=== PATIENT | male | born 1955 | race Hispanic/Latino ===

== ENCOUNTER 2018-12-11 10:04 | Inpatient (IN) | payer OTHER ==
[2018-12-11] VITALS (16 sets, daily range): BP systolic 143–181; BP diastolic 61–103
[~2018-12-11] VITALS: Ht 154.9 cm; Wt 81.6 kg
[2018-12-11 11:16] LABS: BASOPHILS % (AUTO) 0.9 % (0.0-5.0); EOSINOPHILS % (AUTO) 6.9 % (0.0-8.0); HEMATOCRIT 32.7 % (42-54); LYMPHOCYTES % (AUTO) 17.9 % (21.0-51.0); MEAN CORPUSCULAR HEMOGLOBIN 29.6 pg (27.0-33.0); MEAN CORPUSCULAR HGB CONC 34.3 g/dL (32.0-36.0); MEAN CORPUSCULAR VOLUME 86.5 fL (79-99); MONOCYTES % (AUTO) 5.1 % (3.0-13.0); NEUTROPHILS % (AUTO) 69.2 % (40.0-77.0); PLATELET COUNT (AUTO) 270 K/uL (130-400); RED BLOOD CELL COUNT(AUTO) 3.78 MIL/uL (4.50-6.20); WHITE BLOOD COUNT (AUTO) 9.9 K/uL (4.8-10.8)
[2018-12-11 11:22] LABS: POTASSIUM 4.5 mmol/L (3.5-5.1)
[2018-12-11 11:34] LABS: ALBUMIN 2.3 g/dL (3.5-5.0); BILIRUBIN,TOTAL 0.2 mg/dL (0.2-1.0); INR 0.95 (0.85-1.15); PARTIAL THROMBOPLASTIN TIME 29.6 SEC (26.3-35.5); TOTAL PROTEIN, SERUM 6.3 g/dL (6.0-8.3)
[2018-12-11 11:39] LABS: B-TYPE NATRIURETIC PEPTIDE 1740 pg/mL (0-100)
[2018-12-11] MEDS ORDERED: FUROSEMIDE 10 MG/ML 2ML VIAL ONE (12:05)
[2018-12-11] MEDS ORDERED: FUROSEMIDE 10 MG/ML 4ML VIAL ONE (12:06)
[2018-12-11] MEDS ORDERED: NITROGLYCERIN 1GM/1 INCH PACKET TD ONE (12:06)
[2018-12-11] MEDS ORDERED: MORPHINE SULFATE 2 MG/ML 1ML SYG IV PRN (12:15)
[2018-12-11] MEDS ORDERED: ACETAMINOPHEN 325 MG TAB PO PRN (12:15)
[2018-12-11] MEDS ORDERED: ONDANSETRON HCL 4 MG/2 ML VIAL IV PRN (12:15)
[2018-12-11] MEDS: FUROSEMIDE 10 MG/ML 2ML VIAL IV SCH ×2 (12:15→23:17)
[2018-12-11] MEDS ORDERED: HYDRALAZINE HCL 20 MG/ML VIAL ONE (13:29)
[2018-12-11] MEDS ORDERED: NITROGLYCERIN 50 MG/D5% WATER 250 BOT IV PRN (14:45)
[2018-12-11] MEDS ORDERED: NITROGLYCERIN 50 MG/D5% WATER 1 BOT ONE ×2 (14:50→15:26)
[2018-12-11] MEDS ORDERED: LABETALOL HCL 5 MG/ML 20ML VIAL IV ONE (15:51)
[2018-12-11] MEDS: METOPROLOL TARTRATE 50 MG TAB PO SCH ×2 (16:15→23:17)
[2018-12-11] MEDS: ASPIRIN 81MG TAB.CHEW PO SCH (16:15)
[2018-12-11] MEDS: AMLODIPINE BESYLATE 5 MG TAB PO SCH (16:15)
[2018-12-11] MEDS ORDERED: AMLODIPINE BESYLATE 5 MG TAB PO ONE (16:27)
[2018-12-11] MEDS ORDERED: ASPIRIN 81MG TAB.CHEW ONE (16:27)
[2018-12-11] MEDS ORDERED: METOPROLOL TARTRATE 50 MG TAB ONE (16:28)
[2018-12-11] MEDS: INSULIN HUMULIN R 100 UNIT/ML 3ML SQ SCH ×2 (16:30→21:00)
[2018-12-11] MEDS: IPRATROPIUM/ALBUTEROL SULFATE 3 ML SOLUTION IH SCH ×2 (18:32→23:04)
[2018-12-11] MEDS: ATORVASTATIN CALCIUM 20 MG TABLET PO SCH (21:02)
[2018-12-11 21:09] LABS: CREATINE KINASE, TOTAL 150 U/L (21-232); MYOGLOBIN 292 ng/mL (10-92); TROPONIN I < 0.04 ng/mL (0.00-0.06)
[2018-12-11 21:48] LABS: APPEARANCE,URINE Clear (CLEAR); BILIRUBIN,URINE Negative (NEGATIVE); COLOR,URINE Yellow (YELLOW); GLUCOSE, URINE (UA) 250 mg/dL (NEGATIVE); KETONES,URINE Negative (NEGATIVE); LEUKOCYTE ESTERASE ,URINE Negative (NEGATIVE); NITRATE,URINE Negative (NEGATIVE); OCCULT BLOOD,URINE Small (NEGATIVE); PROTEIN,URINE >=1000 mg/dL (NEGATIVE); UROBILINOGEN,URINE 0.2 mg/dL (0.2-1.0)
[2018-12-11 22:13] LABS: BACTERIA,URINE Few /HPF (None Seen); WBC,URINE 0-1 /HPF (0-1)
[2018-12-11 22:14] LABS: SQUAMOUS EPITHELIAL CELL,UR Rare /HPF (0-2)
[2018-12-11 23:40] LABS: CREATINE KINASE, TOTAL 148 U/L (21-232); MYOGLOBIN 297 ng/mL (10-92); TROPONIN I < 0.04 ng/mL (0.00-0.06)
[2018-12-12] VITALS (30 sets, daily range): BP systolic 140–184; BP diastolic 65–95
[2018-12-12 03:53] LABS: BASOPHILS % (AUTO) 0.7 % (0.0-5.0); EOSINOPHILS % (AUTO) 10.2 % (0.0-8.0); HEMATOCRIT 27.9 % (42-54); LYMPHOCYTES % (AUTO) 21.6 % (21.0-51.0); MEAN CORPUSCULAR HEMOGLOBIN 29.2 pg (27.0-33.0); MEAN CORPUSCULAR HGB CONC 33.5 g/dL (32.0-36.0); MEAN CORPUSCULAR VOLUME 87.2 fL (79-99); MONOCYTES % (AUTO) 7.7 % (3.0-13.0); NEUTROPHILS % (AUTO) 59.8 % (40.0-77.0); PLATELET COUNT (AUTO) 247 K/uL (130-400); RED CELL DISTRIBUTION WIDTH 15.4 % (11.0-15.5); WHITE BLOOD COUNT (AUTO) 10.1 K/uL (4.8-10.8)
[2018-12-12 04:07] LABS: PHOSPHORUS 5.1 mg/dL (2.5-4.9); POTASSIUM 4.1 mmol/L (3.5-5.1)
[2018-12-12] MEDS: INSULIN HUMULIN R 100 UNIT/ML 3ML SQ SCH ×4 (06:09→20:28)
[2018-12-12] MEDS: IPRATROPIUM/ALBUTEROL SULFATE 3 ML SOLUTION IH SCH ×4 (06:29→23:30)
[2018-12-12] MEDS: AMLODIPINE BESYLATE 5 MG TAB PO SCH (07:57)
[2018-12-12] MEDS: METOPROLOL TARTRATE 50 MG TAB PO SCH ×2 (07:57→20:52)
[2018-12-12] MEDS: FAMOTIDINE 20MG TAB 20 MG TAB PO SCH (07:57)
[2018-12-12] MEDS: ASPIRIN 81MG TAB.CHEW PO SCH (07:57)
[2018-12-12] MEDS: FOLIC ACID/VITAMIN B COMP W-C 1 MG CAP/TAB PO SCH (07:57)
[2018-12-12] MEDS: ENOXAPARIN SODIUM 40 MG/0.4 ML SYRINGE SQ SCH (07:58)
[2018-12-12] MEDS ORDERED: METOPROLOL TARTRATE 25 MG TAB PO SCH (10:50)
[2018-12-12] MEDS: FUROSEMIDE 10 MG/ML 2ML VIAL IV SCH (11:21)
--- NOTE | 2018-12-12 12:20 | NUR ---
DR. WRIGHT IN ROOM SPEAKING WITH PT. AND PT.'S SPOUSE RE:PLAN OF CARE. QUESTIONS ANSWERED BY DR. WRIGHT; VERBALIZED MUTUAL UNDERSTANDING.
[2018-12-12] MEDS: BUMETANIDE 0.25 MG/ML 10 ML 40 ML IV SCH (14:13)
--- NOTE | 2018-12-12 18:40 | NUR ---
cm note met with patient and spouse, and states pt is independnet with ambualtion, and adls. no dme. states [place]. does not see pcp, provided info on [facility] in the area, and med assistance programs. pt vand spouse verbalize understanding and states will followup . also will follow with [place] for possible medicaid assistance. Addendum: 12/12/18 at 1842 by SRINIVAS GRANADOS CM Amended: Links added.
[2018-12-12] MEDS ORDERED: ACETAMINOPHEN 325 MG TAB PO PRN (20:30)
[2018-12-12] MEDS: ATORVASTATIN CALCIUM 20 MG TABLET PO SCH (20:52)
[2018-12-13] VITALS (23 sets, daily range): BP systolic 156–197; BP diastolic 59–123
[2018-12-13 03:49] LABS: MEAN CORPUSCULAR HEMOGLOBIN 29.2 pg (27.0-33.0); MEAN CORPUSCULAR HGB CONC 33.9 g/dL (32.0-36.0); MEAN CORPUSCULAR VOLUME 86.2 fL (79-99); PLATELET COUNT (AUTO) 268 K/uL (130-400); RED BLOOD CELL COUNT(AUTO) 3.25 MIL/uL (4.50-6.20); WHITE BLOOD COUNT (AUTO) 9.5 K/uL (4.8-10.8)
[2018-12-13 04:04] LABS: CREATININE 5.1 mg/dL (0.5-1.5); MAGNESIUM 1.8 mg/dL (1.80-2.40); PHOSPHORUS 5.1 mg/dL (2.5-4.9)
[2018-12-13 04:24] LABS: FERRITIN 234 ng/mL (30-400); IRON, SERUM 45 mcg/dL (65-175)
[2018-12-13 04:30] LABS: HEMOGLOBIN A1C 5.6 % (4.0-6.0)
[2018-12-13] MEDS: BUMETANIDE 0.25 MG/ML 10 ML 40 ML IV SCH (04:44)
[2018-12-13] MEDS: INSULIN HUMULIN R 100 UNIT/ML 3ML SQ SCH ×4 (05:34→20:23)
[2018-12-13] MEDS: IPRATROPIUM/ALBUTEROL SULFATE 3 ML SOLUTION IH SCH ×4 (06:00→23:28)
[2018-12-13] MEDS: ASPIRIN 81MG TAB.CHEW PO SCH (07:32)
[2018-12-13] MEDS: FOLIC ACID/VITAMIN B COMP W-C 1 MG CAP/TAB PO SCH (07:33)
[2018-12-13] MEDS: METOPROLOL TARTRATE 50 MG TAB PO SCH ×2 (07:33→20:26)
[2018-12-13] MEDS: FAMOTIDINE 20MG TAB 20 MG TAB PO SCH (07:33)
[2018-12-13] MEDS: AMLODIPINE BESYLATE 5 MG TAB PO SCH (07:33)
[2018-12-13] MEDS: ENOXAPARIN SODIUM 40 MG/0.4 ML SYRINGE SQ SCH (07:34)
[2018-12-13] MEDS ORDERED: CLONIDINE HCL 0.1 MG TABLET PO PRN (11:00)
[2018-12-13] MEDS ORDERED: METOPROLOL TARTRATE 50 MG TAB PO SCH (11:30)
[2018-12-13] MEDS ORDERED: AMLODIPINE BESYLATE 5 MG TAB PO SCH (11:30)
--- NOTE | 2018-12-13 12:21 | NUR ---
DR. Vasiliy RAVI IN ROOM SPEAKING WITH PT. RE:PLAN OF CARE; PT.'S SPOUSE AT BEDSIDE. QUESTIONS ANSWERED BY DR. RAVI.
--- NOTE | 2018-12-13 13:06 | NUR ---
BP-158/80. TRIDIL STOPPED. CALL LIGHT WITHIN REACH. SPOUSE AT BEDSIDE.
[2018-12-13] MEDS: ATORVASTATIN CALCIUM 20 MG TABLET PO SCH (20:25)
[2018-12-13] MEDS: CLONIDINE HCL 0.1 MG TABLET PO SCH (22:27)
[2018-12-14] VITALS (28 sets, daily range): BP systolic 128–193; BP diastolic 63–93
[2018-12-14] MEDS: MINOXIDIL 2.5 MG TAB PO SCH ×3 (02:00→21:23)
[2018-12-14 03:11] LABS: BASOPHILS % (AUTO) 0.6 % (0.0-5.0); EOSINOPHILS % (AUTO) 15.5 % (0.0-8.0); HEMATOCRIT 26.7 % (42-54); LYMPHOCYTES % (AUTO) 23.1 % (21.0-51.0); MEAN CORPUSCULAR HEMOGLOBIN 29.5 pg (27.0-33.0); MEAN CORPUSCULAR HGB CONC 33.8 g/dL (32.0-36.0); MEAN CORPUSCULAR VOLUME 87.2 fL (79-99); MONOCYTES % (AUTO) 7.6 % (3.0-13.0); NEUTROPHILS % (AUTO) 53.2 % (40.0-77.0); PLATELET COUNT (AUTO) 227 K/uL (130-400); RED BLOOD CELL COUNT(AUTO) 3.07 MIL/uL (4.50-6.20); RED CELL DISTRIBUTION WIDTH 15.6 % (11.0-15.5); WHITE BLOOD COUNT (AUTO) 9.2 K/uL (4.8-10.8)
[2018-12-14 03:26] LABS: CREATININE 5.3 mg/dL (0.5-1.5); MAGNESIUM 1.6 mg/dL (1.80-2.40); POTASSIUM 3.8 mmol/L (3.5-5.1)
[2018-12-14] MEDS: INSULIN HUMULIN R 100 UNIT/ML 3ML SQ SCH ×4 (05:52→21:00)
[2018-12-14] MEDS: CLONIDINE HCL 0.1 MG TABLET PO SCH ×3 (05:58→21:27)
[2018-12-14] MEDS: IPRATROPIUM/ALBUTEROL SULFATE 3 ML SOLUTION IH SCH ×2 (06:18→11:26)
[2018-12-14] MEDS: FAMOTIDINE 20MG TAB 20 MG TAB PO SCH (07:45)
[2018-12-14] MEDS: ASPIRIN 81MG TAB.CHEW PO SCH (07:45)
[2018-12-14] MEDS: AMLODIPINE BESYLATE 5 MG TAB PO SCH (07:45)
[2018-12-14] MEDS: ENOXAPARIN SODIUM 30 MG/0.3 ML SQ SCH (07:46)
[2018-12-14] MEDS ORDERED: MAGNESIUM OXIDE 400 MG TABLET PO SCH (08:00)
[2018-12-14] MEDS: FOLIC ACID/VITAMIN B COMP W-C 1 MG CAP/TAB PO SCH (08:27)
[2018-12-14] MEDS: METOPROLOL TARTRATE 50 MG TAB PO SCH ×2 (08:27→21:23)
[2018-12-14] MEDS ORDERED: FUROSEMIDE 40 MG TABLET PO SCH (11:00)
--- NOTE | 2018-12-14 16:15 | NUR ---
REPORT GIVEN TOP JANI CHAPPELL RN. TRANSFERRED TO PCCU, ROOM 201, NO SIGNS OF DISTRESS OR DISCOMFORT NOTED, LATEST B/P 148/72, SB 59
--- NOTE | 2018-12-14 16:20 | NUR ---
TRANSFER FROM ICU RECEIVED PT FROM WILLIAM BROWN, UP IN CARDIAC CHAIR, A&OX3, CALM COOPERATIVE AND DOES NOT APPEAR TO BE IN ANY DISTRESS NOR ANY NEURO DEFICITS PRESENT. PT DENIES PAIN, SOB, NAUSEA. PT RESTING COMFORTABLY, CALL LIGHT WITHIN REACH, FAMILY AT BEDSIDE.
--- NOTE | 2018-12-14 19:58 | NUR ---
ASSESSED PT AND SEE PHYSICAL ASSESSMENT FOR DOCUMENTATION.
[2018-12-14] MEDS: ATORVASTATIN CALCIUM 20 MG TABLET PO SCH (21:23)
[2018-12-15] VITALS (7 sets, daily range): BP systolic 130–159; BP diastolic 59–75
[2018-12-15 04:44] LABS: BASOPHILS % (AUTO) 0.8 % (0.0-5.0); EOSINOPHILS % (AUTO) 17.1 % (0.0-8.0); LYMPHOCYTES % (AUTO) 23.6 % (21.0-51.0); MEAN CORPUSCULAR HEMOGLOBIN 29.6 pg (27.0-33.0); MEAN CORPUSCULAR HGB CONC 34.5 g/dL (32.0-36.0); MEAN CORPUSCULAR VOLUME 85.9 fL (79-99); MONOCYTES % (AUTO) 7.7 % (3.0-13.0); NEUTROPHILS % (AUTO) 50.8 % (40.0-77.0); PLATELET COUNT (AUTO) 205 K/uL (130-400); RED BLOOD CELL COUNT(AUTO) 3.03 MIL/uL (4.50-6.20); RED CELL DISTRIBUTION WIDTH 15.3 % (11.0-15.5); WHITE BLOOD COUNT (AUTO) 8.3 K/uL (4.8-10.8)
[2018-12-15 04:52] LABS: CREATININE 5.3 mg/dL (0.5-1.5); POTASSIUM 3.9 mmol/L (3.5-5.1)
[2018-12-15] MEDS: CLONIDINE HCL 0.1 MG TABLET PO SCH ×3 (06:58→21:36)
[2018-12-15] MEDS: INSULIN HUMULIN R 100 UNIT/ML 3ML SQ SCH ×4 (06:59→21:44)
[2018-12-15] MEDS: IPRATROPIUM/ALBUTEROL SULFATE 3 ML SOLUTION IH SCH ×4 (07:01→23:01)
[2018-12-15] MEDS: METOPROLOL TARTRATE 50 MG TAB PO SCH ×2 (07:14→20:09)
[2018-12-15] MEDS: FAMOTIDINE 20MG TAB 20 MG TAB PO SCH (07:14)
[2018-12-15] MEDS: MINOXIDIL 2.5 MG TAB PO SCH ×2 (07:14→20:09)
[2018-12-15] MEDS: FOLIC ACID/VITAMIN B COMP W-C 1 MG CAP/TAB PO SCH (07:14)
[2018-12-15] MEDS: AMLODIPINE BESYLATE 5 MG TAB PO SCH (07:14)
[2018-12-15] MEDS: ASPIRIN 81MG TAB.CHEW PO SCH (07:14)
[2018-12-15] MEDS: ENOXAPARIN SODIUM 30 MG/0.3 ML SQ SCH (07:15)
--- NOTE | 2018-12-15 07:20 | NUR ---
ASSESSMENT PT IS AAOX4 DENIES CP DENIES SOB DENIES NV NO COMPLAINTS AT THIS TIME, RESTING IN BED. BREATHING PATTERN IS EVEN AND UNLABORED. VISITOR IS AT BEDSIDE, CALL LIGHT WITHIN REACH.
[2018-12-15] MEDS ORDERED: FUROSEMIDE 40 MG TABLET PO SCH (09:00)
[2018-12-15] MEDS ORDERED: FUROSEMIDE 10 MG/ML 4ML VIAL IV SCH (12:00)
--- NOTE | 2018-12-15 12:30 | NUR ---
MD ROUNDS DR Marissa RAVI AND DR WRIGHT ROUNDED. SAW PATIENT, ORDERS RECEIVED.
--- NOTE | 2018-12-15 17:50 | NUR ---
STATUS RESTING IN BED NO COMPLAINTS. CALL LIGHT WITHIN REACH.
[2018-12-15] MEDS: ATORVASTATIN CALCIUM 20 MG TABLET PO SCH (20:09)
[2018-12-16 04:24] VITALS: BP 138/58
[2018-12-16] MEDS: INSULIN HUMULIN R 100 UNIT/ML 3ML SQ SCH (05:58)
[2018-12-16] MEDS: CLONIDINE HCL 0.1 MG TABLET PO SCH (05:59)
[2018-12-16] MEDS: IPRATROPIUM/ALBUTEROL SULFATE 3 ML SOLUTION IH SCH (06:18)
--- NOTE | 2018-12-16 07:00 | NUR ---
ASSESSMENT PT IS AAOX4 RESTING IN BED. DENIES CP DENIES SOB DENIES NV NO COMPLAINTS. BREATHING PATTERN IS EVEN AND UNLABORED. CALL LIGHT WITHIN REACH.
[2018-12-16] MEDS: FAMOTIDINE 20MG TAB 20 MG TAB PO SCH (07:11)
[2018-12-16] MEDS: FOLIC ACID/VITAMIN B COMP W-C 1 MG CAP/TAB PO SCH (07:11)
[2018-12-16] MEDS: MINOXIDIL 2.5 MG TAB PO SCH (07:11)
[2018-12-16] MEDS: ASPIRIN 81MG TAB.CHEW PO SCH (07:11)
[2018-12-16] MEDS: METOPROLOL TARTRATE 50 MG TAB PO SCH (07:11)
[2018-12-16] MEDS: AMLODIPINE BESYLATE 5 MG TAB PO SCH (07:11)
[2018-12-16] MEDS: ENOXAPARIN SODIUM 30 MG/0.3 ML SQ SCH (07:12)
[2018-12-16 07:53] VITALS: BP 120/59
[2018-12-16] MEDS ORDERED: AMLO5TAB4 PO (08:32)
[2018-12-16] MEDS ORDERED: ATOR20TA65 PO (08:32)
[2018-12-16] MEDS ORDERED: FURO80TA3 PO (08:32)
[2018-12-16] MEDS ORDERED: METO50 PO (08:32)
[2018-12-16] MEDS ORDERED: Folic Acid/Vitamin B Comp W-C PO (08:32)
[2018-12-16] MEDS ORDERED: ASPI-1005 PO (08:32)
[2018-12-16] MEDS ORDERED: FUROSEMIDE 80 MG TABLET PO SCH (09:00)
--- NOTE | 2018-12-16 10:45 | NUR ---
ROUNDS CLEARED FOR DC BY DR KYLE LAMA AND DR Marissa RAVI
--- NOTE | 2018-12-16 11:10 | NUR ---
DISCHARGE PATIENT AND FAMILY VERBALIZE DC INSTRUCTIONS UNDERSTANDING. AGREE TO TAKE ALL MEDS ORDERED WITHOUT FAIL, AGREE TO FOLLOW UP WITH MDS ORDERED. ALL QUESTIONS ANSWERED, PIV REMOVED CATH TIP INTACT. TELE PACK REMOVED. AWAITING RIDE.
--- NOTE | 2018-12-16 12:30 | NUR ---
DOWN VIA WC TO RIDE WITH FAMILY AND NURSE AIDE
--- NOTE | 2018-12-16 13:20 | NUR ---
DC PLAN PATIENT GIVEN LOW INCOME CLINIC INFO. MEDICATIONS ADDRESSED WITH PRIMARY ALL GIVEN FOR HOME ARE EITHER OVER THE COUNTER OR ON THE 4DOLLAR PLAN AT [facility]. INFO GIVEN TO PATIENT. Addendum: 12/16/18 at 1321 by DENNISE TOMLIN RN CM Amended: Links added.
== END 2018-12-16 12:30 | disposition home or self-care (01) | DRG 291 ==
LOC: EDH 10:04 → OBSVTOIN 10:05 → EDHIP 10:05 → 2CH 18:23 → 2AH 12-14 16:26
PROVIDERS: ADMIT Hospitalist; ATTEND Hospitalist
DX: I13.2 Hypertensive heart and chronic kidney disease with heart failure and with stage 5 chronic kidney disease, or end stage renal disease (principal); J96.01 Acute respiratory failure with hypoxia; I50.33 Acute on chronic diastolic (congestive) heart failure; I16.1 Hypertensive emergency; E44.0 Moderate protein-calorie malnutrition; N17.9 Acute kidney failure, unspecified; N18.5 Chronic kidney disease, stage 5; I20.0 Unstable angina; D63.8 Anemia in other chronic diseases classified elsewhere; E11.21 Type 2 diabetes mellitus with diabetic nephropathy; E11.22 Type 2 diabetes mellitus with diabetic chronic kidney disease; E66.9 Obesity, unspecified; E78.5 Hyperlipidemia, unspecified; I45.10 Unspecified right bundle-branch block; Z16.24 Resistance to multiple antibiotics; Z68.34 Body mass index [BMI] 34.0-34.9, adult; Z79.82 Long term (current) use of aspirin; Z79.899 Other long term (current) drug therapy; Z87.891 Personal history of nicotine dependence; Z91.14 Patient's other noncompliance with medication regimen; Z91.19 Patient's noncompliance with other medical treatment and regimen
CPT/HCPCS: 36415; 71045; 76705; 76770; 80048; 80053; 80061; 81001; 82550; 82728; 82948; 83036; 83540; 83735; 83874; 83880; 84100; 84484; 84550; 85025; 85027; 85610; 85730; 93005; 93306; 93975; 94640; 94664; G0378; J0360; J1650; J1815; J1940; J3490

== ENCOUNTER 2019-04-04 17:45 | Inpatient (IN) | payer MEDICAID, OTHER ==
[~2019-04-04] VITALS: Ht 167.6 cm; Wt 77.2 kg
[~2019-04-04 17:45] MED LIST: AMLO5TAB4 PO; ASPI-1005 PO; ATOR20TA65 PO; FURO80TA3 PO; Folic Acid/Vitamin B Comp W-C PO; METO50 PO
[2019-04-04] MEDS ORDERED: LABETALOL 20 MG/4 ML DISP.SYRIN IV ONE (19:17)
[2019-04-04 19:35] LABS: APPEARANCE,URINE Clear (CLEAR); BILIRUBIN,URINE Negative (NEGATIVE); COLOR,URINE Yellow (YELLOW); GLUCOSE, URINE (UA) TRACE mg/dL (NEGATIVE); KETONES,URINE Negative (NEGATIVE); LEUKOCYTE ESTERASE ,URINE Small (NEGATIVE); NITRATE,URINE Negative (NEGATIVE); OCCULT BLOOD,URINE Moderate (NEGATIVE); PH,URINE 6.5 (5.0-8.0); PROTEIN,URINE >=1000 mg/dL (NEGATIVE)
[2019-04-04 19:41] LABS: BASOPHILS % (AUTO) 0.5 % (0.0-5.0); HEMATOCRIT 27.4 % (42-54); LYMPHOCYTES % (AUTO) 8.2 % (21.0-51.0); MEAN CORPUSCULAR HEMOGLOBIN 28.3 pg (27.0-33.0); MEAN CORPUSCULAR HGB CONC 32.5 g/dL (32.0-36.0); MEAN CORPUSCULAR VOLUME 86.9 fL (79-99); MONOCYTES % (AUTO) 6.8 % (3.0-13.0); NEUTROPHILS % (AUTO) 83.5 % (40.0-77.0); PLATELET COUNT (AUTO) 356 K/uL (130-400); RED BLOOD CELL COUNT(AUTO) 3.15 MIL/uL (4.50-6.20); RED CELL DISTRIBUTION WIDTH 14.2 % (11.0-15.5); WHITE BLOOD COUNT (AUTO) 12.2 K/uL (4.8-10.8)
[2019-04-04 19:43] LABS: ALBUMIN 1.6 g/dL (3.5-5.0); BILIRUBIN,DIRECT 0.1 mg/dL (0.0-0.3); BILIRUBIN,TOTAL 0.3 mg/dL (0.2-1.0); CREATININE 6.6 mg/dL (0.5-1.5); POTASSIUM 4.5 mmol/L (3.5-5.1); TOTAL PROTEIN, SERUM 5.7 g/dL (6.0-8.3)
[2019-04-04 19:50] LABS: BACTERIA,URINE Many /HPF (None Seen)
[2019-04-04] MEDS ORDERED: CEFTRIAXONE SODIUM 1 GM ONE (20:59)
[2019-04-04] MEDS ORDERED: LABETALOL HCL 5 MG/ML 20ML VIAL IV ONE (23:50)
[2019-04-05] MEDS ORDERED: SODIUM CHLORIDE 0.9% 1000ML 1,000 ML IV SCH (00:19)
[2019-04-05] MEDS ORDERED: MORPHINE SULFATE 2 MG/ML 1ML SYG IV PRN (00:30)
[2019-04-05] MEDS ORDERED: HYDRALAZINE HCL 20 MG/ML VIAL IV PRN (00:30)
[2019-04-05] MEDS ORDERED: PHARMACY COMMUNICATION MISC SCH (02:00)
[2019-04-05] MEDS ORDERED: CEFTRIAXONE SODIUM 1 GM IVP SCH (02:45)
[2019-04-05] MEDS ORDERED: ZOSYN 3.375GM+NS 50ML 50 ML IV ONE (02:55)
[2019-04-05] MEDS: ZOSYN 3.375GM+NS 50ML 50 ML IV SCH ×2 (05:00→13:23)
[2019-04-05 05:45] VITALS: BP 189/83
--- NOTE | 2019-04-05 06:00 | NUR ---
NURSING NOTE Pt arrived to floor. Pt denies any needs at this time. Torres patent and draining. Redness to groin area barrier cream applied. lower extremities dry flaking skin.
[2019-04-05] MEDS ORDERED: IRON18TA PO (06:14)
[2019-04-05] MEDS ORDERED: FOLI1TAB85 PO (06:14)
[2019-04-05 07:30] VITALS: BP 185/86
[2019-04-05] MEDS ORDERED: ENOXAPARIN SODIUM 30 MG/0.3 ML SQ SCH (09:00)
[2019-04-05] MEDS ORDERED: AMLODIPINE BESYLATE 5 MG TAB ONE (09:31)
[2019-04-05] MEDS: FAMOTIDINE/PF 20 MG/2 ML VIAL IV SCH ×2 (09:35→21:39)
[2019-04-05 11:00] VITALS: BP 177/79
[2019-04-05 16:00] VITALS: BP 164/76
--- NOTE | 2019-04-05 17:54 | NUR ---
dm note met with patient and spouse, pt independent with bath, but uses walker at times for ambulation. and does have a wc at home for longer distance. pt goes to [facility] familiar for md and meds. , but hasnt gone due to difficulty getting at ride. provided with [facility] information for transport and provider assist referal. states she will followup. dc plan is back [place]. also informed that per md pt may need dialysis,per , she is not sure he will qualify for insurance. but states he is not a resident, but she is a [place] citizen,, and has lived with him for 16 years. referral made to [facility]. spoke to herminia at [facility] and informed pt has a disabiling illness of ESRD. who states he will followup with his polymerization supervisor for possible assistance. Addendum: 04/05/19 at 1804 by SRINIVAS GRANADOS CM Amended: Links added.
[2019-04-05] MEDS: ATORVASTATIN CALCIUM 20 MG TABLET PO SCH (21:39)
[2019-04-05] MEDS: METOPROLOL TARTRATE 50 MG TAB PO SCH (21:39)
[2019-04-05 21:46] VITALS: BP 151/73
[2019-04-06] VITALS (7 sets, daily range): BP systolic 127–189; BP diastolic 62–83
[2019-04-06] MEDS: ZOSYN 3.375GM+NS 50ML 50 ML IV SCH ×2 (01:40→13:13)
[2019-04-06 05:03] LABS: ALBUMIN 1.7 g/dL (3.5-5.0); BILIRUBIN,TOTAL 0.4 mg/dL (0.2-1.0); CREATININE 6.6 mg/dL (0.5-1.5); MAGNESIUM 1.8 mg/dL (1.80-2.40); PHOSPHORUS 5.5 mg/dL (2.5-4.9); TOTAL PROTEIN, SERUM 5.8 g/dL (6.0-8.3)
[2019-04-06 05:47] LABS: MEAN CORPUSCULAR HEMOGLOBIN 28.8 pg (27.0-33.0); MEAN CORPUSCULAR HGB CONC 32.7 g/dL (32.0-36.0); MEAN CORPUSCULAR VOLUME 88.2 fL (79-99); NUCLEATED RED BLOOD CELLS 0.1 % (0.0-0.19); PLATELET COUNT (AUTO) 311 K/uL (130-400); RED BLOOD CELL COUNT(AUTO) 2.95 MIL/uL (4.50-6.20); RED CELL DISTRIBUTION WIDTH 14.1 % (11.0-15.5); WHITE BLOOD COUNT (AUTO) 9.8 K/uL (4.8-10.8)
[2019-04-06 05:51] LABS: BAND NEUTROPHILS % (MANUAL) 1 % (0-2); EOSINOPHILS % (MANUAL) 3 % (1-6); LYMPHOCYTES % (MANUAL) 15 % (22-44); MAN.DIFF COMMENT-IMPRESSION MANUAL DIFFERENTIAL; MONOCYTES % (MANUAL) 4 % (2-9); PLATELET MORPHOLOGY COMMENT ADEQUATE; SEGMENTED NEUTROPHILS % 77 % (40-70)
[2019-04-06] MEDS ORDERED: FOLIC ACID/VITAMIN B COMP W-C 1 MG CAP/TAB PO SCH (08:30)
[2019-04-06] MEDS: FUROSEMIDE 80 MG TABLET PO SCH (08:33)
[2019-04-06] MEDS: AMLODIPINE BESYLATE 5 MG TAB PO SCH (08:33)
[2019-04-06] MEDS: METOPROLOL TARTRATE 50 MG TAB PO SCH ×2 (08:33→20:19)
[2019-04-06] MEDS: FAMOTIDINE/PF 20 MG/2 ML VIAL IV SCH ×2 (08:33→20:19)
[2019-04-06] MEDS ORDERED: AMLODIPINE BESYLATE 5 MG TAB PO SCH (09:00)
[2019-04-06] MEDS: ATORVASTATIN CALCIUM 20 MG TABLET PO SCH (20:19)
[2019-04-06] MEDS: HYDRALAZINE HCL 10 MG TABLET PO SCH (20:20)
--- NOTE | 2019-04-06 20:20 | NUR ---
MEDS SHIFT ASSESSMENT DONE, PLEASE REFER TO CHART. RE-POSITIONED COMFORTABLY IN BED WITH HOB ELEVATED. DUE MEDS ADMINISTERED, TOLERATE DWELL. CALL LIGHT WITHIN REACH. FAMILY AT BEDSIDE. WILL MONITOR PT. Addendum: 04/07/19 at 0109 by KASANDRA ERVIN RN RN Amended: Links added.
[2019-04-07] MEDS: ZOSYN 3.375GM+NS 50ML 50 ML IV SCH ×2 (00:19→12:13)
--- NOTE | 2019-04-07 02:00 | NUR ---
ROUNDS PT RESTING WELL, FAIRLY ASLEEP WITH RESPIRATIONS EVEN AND UNLABORED. NO DISTRESS NOTED. KEPT COMFORTABLE. CALL LIGHT WITHIN REACH. WILL MONITOR PT.
[2019-04-07 03:58] VITALS: BP 155/75
[2019-04-07 05:05] LABS: MEAN CORPUSCULAR HEMOGLOBIN 29.4 pg (27.0-33.0); MEAN CORPUSCULAR HGB CONC 33.4 g/dL (32.0-36.0); MEAN CORPUSCULAR VOLUME 87.9 fL (79-99); PLATELET COUNT (AUTO) 330 K/uL (130-400); RED BLOOD CELL COUNT(AUTO) 2.96 MIL/uL (4.50-6.20); RED CELL DISTRIBUTION WIDTH 13.4 % (11.0-15.5); WHITE BLOOD COUNT (AUTO) 9.5 K/uL (4.8-10.8)
--- NOTE | 2019-04-07 05:35 | NUR ---
ROUNDS PT RESTING WELL, NO DISTRESS NOTED. NO CONCERNS VERBALIZED. KEPT RESTED AND COMFORTABLE. SALINE LOCKED PT. FOR MORE CARE AND MANAGEMENT.
[2019-04-07 05:37] LABS: HEMOGLOBIN A1C 4.6 % (4.0-6.0)
[2019-04-07 05:44] LABS: CREATININE 6.8 mg/dL (0.5-1.5); POTASSIUM 4.4 mmol/L (3.5-5.1)
[2019-04-07 05:51] LABS: EOSINOPHILS % (MANUAL) 11 % (1-6); LYMPHOCYTES % (MANUAL) 12 % (22-44); MAN.DIFF COMMENT-IMPRESSION MANUAL DIFFERENTIAL; MONOCYTES % (MANUAL) 9 % (2-9); PLATELET MORPHOLOGY COMMENT ADEQUATE; SEGMENTED NEUTROPHILS % 68 % (40-70)
[2019-04-07 07:00] VITALS: BP 138/72
[2019-04-07] MEDS: FUROSEMIDE 80 MG TABLET PO SCH (07:56)
[2019-04-07] MEDS: AMLODIPINE BESYLATE 5 MG TAB PO SCH (07:56)
[2019-04-07] MEDS: FAMOTIDINE/PF 20 MG/2 ML VIAL IV SCH ×2 (07:56→21:41)
[2019-04-07] MEDS: METOPROLOL TARTRATE 50 MG TAB PO SCH ×2 (07:56→21:41)
[2019-04-07] MEDS: HYDRALAZINE HCL 10 MG TABLET PO SCH ×3 (08:38→21:41)
[2019-04-07 11:00] VITALS: BP 154/64
--- NOTE | 2019-04-07 12:43 | NUR ---
RD Notification Pt admitted for UTI, ESRD, HTN, PCM. Pt Hx DM, CHF, ESRD on HD. Pt asleep at time of visit. reports Pt with small appetite (PO: 50-75%), Nausea and vomiting with medications. Recommend to add Nepro QD. Also recommend Jose Armando BID secondary to Faulkner pressure ulcer. Recommend to add 500mg Vitamin C, 220mg ZnSO4 QD for wound healing support. Pt LBM 04/05/19. Pt monitored labs: Hgb 8.7, BUN 74, Cr 6.8, GFR 9, Ca 7.9, Alb 1.7. RD to continue to monitor. Please notify RD as additional nutrition concerns arise. Thank you. Addendum: 04/07/19 at [address] Amended: Links added.
--- NOTE | 2019-04-07 13:10 | NUR ---
NO HD BENEFITS POSSIBLE- SPOKE TO HAC, PT NON DOCUMENTED.
[2019-04-07 16:00] VITALS: BP 148/76
[2019-04-07] MEDS ORDERED: LIDOCAINE 5% TOPICAL PATCH TP SCH (19:15)
[2019-04-07 20:00] VITALS: BP 144/70
[2019-04-07] MEDS: ATORVASTATIN CALCIUM 20 MG TABLET PO SCH (21:41)
--- NOTE | 2019-04-07 21:41 | NUR ---
MEDS SHIFT ASSESSMENT DONE, PLEASE REFER TO CHART. RE-POSITIONED COMFORTABLY IN BED WITH HOB ELEVATED. DUE MEDS ADMINISTERED, TOLERATED WELL. KEPT RESTED AND COMFORTABLE. CALL LIGHT WITHIN REACH. FAMILY AT BEDSIDE. WILL MONITOR PT. Addendum: 04/07/19 at 2225 by KASANDRA ERVIN RN RN Amended: Links added.
[2019-04-08] VITALS: BP 140/72
[2019-04-08] MEDS: ZOSYN 3.375GM+NS 50ML 50 ML IV SCH ×2 (00:51→12:20)
--- NOTE | 2019-04-08 01:56 | NUR ---
ROUNDS PT RESTING WELL, FAIRLY ASLEEP WITH RESPIRATIONS EVEN AND UNLABORED. NO NOTED DISTRESS. KEPT UNDISTURBED FOR NOW WILL MONITOR PT.CALL LIGHT WITHIN REACH.
[2019-04-08 04:00] VITALS: BP 149/68
--- NOTE | 2019-04-08 05:46 | NUR ---
ROUNDS PT RESTING WELL, DENIES ANY CONCERNS AT THIS TIME. KEPT RESTED AND COMFORTABLE. FOR MORE CARE.
[2019-04-08 08:00] VITALS: BP 164/69
[2019-04-08] MEDS: FUROSEMIDE 80 MG TABLET PO SCH (08:30)
[2019-04-08] MEDS: AMLODIPINE BESYLATE 5 MG TAB PO SCH (08:30)
[2019-04-08] MEDS: HYDRALAZINE HCL 10 MG TABLET PO SCH ×2 (08:30→15:41)
[2019-04-08] MEDS: FAMOTIDINE/PF 20 MG/2 ML VIAL IV SCH (08:31)
[2019-04-08] MEDS: METOPROLOL TARTRATE 50 MG TAB PO SCH (08:31)
[2019-04-08 11:56] VITALS: BP 141/69
[2019-04-08] MEDS ORDERED: LIDO1ADH71 TP (13:43)
--- NOTE | 2019-04-08 14:24 | NUR ---
ADVISED BY MD THAT PT DOES NOT WANT TO GO HOME. PT STATES DOES NOT WANT TO GO HOME THIS MORNING WAS ASKED BY PMD TO SPEAK TO PT HE DOES NOT WANT TO GO HOME SPOKE TO PT/SPOUSE, PRIMARY RN WAS WITNESS, ADVISED HIM HE HAS NO BENEFITS FOR DIALYSIS AND NO BENENFITS FOR OUT PATIENT CARE AND THAT IT WAS TIME FOR HIM TO GO HOME. SPOUSE IN AGREEMENT. SOME DISCUSSION OF HOW TRANSPORT COULD TAKE PLACE, SPOUSE STATES MAYBE THEY COULD CALL A FRIEND, PT WANTS TO GO BY AMBULANCE. WILL FOLLOW UP
[2019-04-08 16:00] VITALS: BP 146/70
== END 2019-04-08 17:45 | disposition home or self-care (01) | DRG 871 ==
LOC: EDH 17:45 → EDBD 17:45 → EDHIP 17:46 → 3BH 04-05 03:01
PROVIDERS: ADMIT Family Medicine; ATTEND Family Medicine
DX: A41.9 Sepsis, unspecified organism (principal); N18.6 End stage renal disease; N39.0 Urinary tract infection, site not specified; I13.2 Hypertensive heart and chronic kidney disease with heart failure and with stage 5 chronic kidney disease, or end stage renal disease; I50.30 Unspecified diastolic (congestive) heart failure; N17.9 Acute kidney failure, unspecified; I16.9 Hypertensive crisis, unspecified; E46 Unspecified protein-calorie malnutrition; E11.21 Type 2 diabetes mellitus with diabetic nephropathy; E11.22 Type 2 diabetes mellitus with diabetic chronic kidney disease; D64.9 Anemia, unspecified; Z96.642 Presence of left artificial hip joint; Z99.2 Dependence on renal dialysis; Z91.19 Patient's noncompliance with other medical treatment and regimen; Z83.3 Family history of diabetes mellitus; Z82.49 Family history of ischemic heart disease and other diseases of the circulatory system; Z91.15 Patient's noncompliance with renal dialysis; Z79.4 Long term (current) use of insulin
CPT/HCPCS: 36415; 71045; 71250; 74176; 76705; 80048; 80053; 80076; 81001; 82728; 82948; 83036; 83540; 83550; 83735; 83880; 84100; 85025; 87040; 87088; 93005; 97039; G0378; J0360; J0696; J1650; J2543; J3490

== ENCOUNTER 2019-05-01 22:27 | Inpatient (IN) | payer OTHER ==
[~2019-05-01] VITALS: Ht 172.7 cm; Wt 75.3 kg
[~2019-05-01 22:27] MED LIST changes: -ASPI-1005 PO; +FOLI1TAB85 PO; +IRON18TA PO; +LIDO1ADH71 TP
[2019-05-01 23:38] LABS: BASOPHILS % (AUTO) 0.1 % (0.0-5.0); EOSINOPHILS % (AUTO) 9.8 % (0.0-8.0); HEMATOCRIT 23.5 % (42-54); LYMPHOCYTES % (AUTO) 16.2 % (21.0-51.0); MEAN CORPUSCULAR HEMOGLOBIN 28.2 pg (27.0-33.0); MEAN CORPUSCULAR HGB CONC 31.1 g/dL (32.0-36.0); MEAN CORPUSCULAR VOLUME 90.7 fL (79-99); MONOCYTES % (AUTO) 7.7 % (3.0-13.0); NEUTROPHILS % (AUTO) 65.9 % (40.0-77.0); PLATELET COUNT (AUTO) 284 K/uL (130-400); RED BLOOD CELL COUNT(AUTO) 2.59 MIL/uL (4.50-6.20); RED CELL DISTRIBUTION WIDTH 16.1 % (11.0-15.5)
[2019-05-01 23:58] LABS: ALANINE AMINOTRANSFERASE 41 U/L (12-78); ALBUMIN 2.2 g/dL (3.5-5.0); ASPARTATE AMINOTRANSFERASE 25 U/L (10-37); BILIRUBIN,TOTAL 0.2 mg/dL (0.2-1.0); CARBON DIOXIDE 19 mmol/L (21-32); CHLORIDE 108 mmol/L (101-111); CREATININE 6.6 mg/dL (0.5-1.5); GLOMERULAR FILTR. RATE CALC 9 mL/min (>60); GLUCOSE,RANDOM 107 mg/dL (70-105); POTASSIUM 5.1 mmol/L (3.5-5.1); SODIUM SERUM 142 mmol/L (136-145); TOTAL PROTEIN, SERUM 6.5 g/dL (6.0-8.3)
[2019-05-02] VITALS (8 sets, daily range): BP systolic 159–192; BP diastolic 75–98
[2019-05-02 00:02] LABS: UREA NITROGEN, BLOOD 77 mg/dL (7-18)
[2019-05-02 00:08] LABS: AMMONIA < 3 umol/L (11-32)
[2019-05-02] MEDS ORDERED: FUROSEMIDE 10 MG/ML 2ML VIAL ONE (00:18)
[2019-05-02 00:21] LABS: B-TYPE NATRIURETIC PEPTIDE 1700 pg/mL (0-100)
[2019-05-02 01:53] LABS: APPEARANCE,URINE Clear (CLEAR); BILIRUBIN,URINE Negative (NEGATIVE); COLOR,URINE Yellow (YELLOW); GLUCOSE, URINE (UA) 250 mg/dL (NEGATIVE); KETONES,URINE Negative (NEGATIVE); LEUKOCYTE ESTERASE ,URINE Trace (NEGATIVE); NITRATE,URINE Negative (NEGATIVE); OCCULT BLOOD,URINE Small (NEGATIVE); PROTEIN,URINE >=1000 mg/dL (NEGATIVE); UROBILINOGEN,URINE 0.2 mg/dL (0.2-1.0)
[2019-05-02] MEDS ORDERED: ONDANSETRON HCL 4 MG/2 ML VIAL IV PRN (02:00)
[2019-05-02] MEDS ORDERED: ACETAMINOPHEN 325 MG TAB PO PRN (02:00)
[2019-05-02] MEDS ORDERED: LACTULOSE 20 GM/30 ML UDCUP PO PRN (02:00)
[2019-05-02 02:01] LABS: BACTERIA,URINE Few /HPF (None Seen); MUCUS,URINE Few LPF (None Seen); SQUAMOUS EPITHELIAL CELL,UR Few /HPF (0-2)
[2019-05-02] MEDS ORDERED: HYDRALAZINE HCL 20 MG/ML VIAL ONE (02:17)
[2019-05-02] MEDS: INSULIN HUMULIN R 100 UNIT/ML 3ML SQ SCH ×4 (06:10→21:00)
[2019-05-02] MEDS ORDERED: FUROSEMIDE 10 MG/ML 4ML VIAL IVP SCH ×2 (09:00→21:00)
[2019-05-02] MEDS: FAMOTIDINE 20MG TAB 20 MG TAB PO SCH ×2 (10:27→22:38)
[2019-05-02] MEDS: CEFTRIAXONE SODIUM 1 GM IVP SCH ×2 (10:27→22:37)
[2019-05-02 11:29] LABS: ABG HCO3 18.9 mmol/L (21.0-28.0); ABG OXYGEN SATURATION 96.4 % (95.0-99.0); ABG PCO2 36 mmHg (35-48)
[2019-05-02 12:51] LABS: HEMATOCRIT 23.5 % (42-54); MEAN CORPUSCULAR HEMOGLOBIN 28.5 pg (27.0-33.0); MEAN CORPUSCULAR HGB CONC 31.5 g/dL (32.0-36.0); MEAN CORPUSCULAR VOLUME 90.4 fL (79-99); PLATELET COUNT (AUTO) 278 K/uL (130-400); RED CELL DISTRIBUTION WIDTH 16.1 % (11.0-15.5); WHITE BLOOD COUNT (AUTO) 8.9 K/uL (4.8-10.8)
[2019-05-02 13:09] LABS: ALBUMIN 2.1 g/dL (3.5-5.0); BILIRUBIN,TOTAL 0.2 mg/dL (0.2-1.0); CREATININE 6.5 mg/dL (0.5-1.5); MAGNESIUM 1.9 mg/dL (1.80-2.40); POTASSIUM 4.8 mmol/L (3.5-5.1); TOTAL PROTEIN, SERUM 6.2 g/dL (6.0-8.3)
[2019-05-02 13:48] LABS: % IRON SATURATION 18.2 % (30-44)
[2019-05-02 13:55] LABS: EOSINOPHILS % (MANUAL) 7 % (1-6); LYMPHOCYTES % (MANUAL) 16 % (22-44); MONOCYTES % (MANUAL) 5 % (2-9); SEGMENTED NEUTROPHILS % 72 % (40-70)
[2019-05-02 13:56] LABS: PLATELET MORPHOLOGY COMMENT ADEQUATE
--- NOTE | 2019-05-02 17:15 | NUR ---
NURSING NOTE Received report from nurse Angle on second floor. Patient A&OX3, in no distress. Edematous legs. Patient reports his perineal area has improved in swelling. Denies any needs. at bedside. Patient denies needs.
--- NOTE | 2019-05-02 17:45 | NUR ---
cm note met with pateint and with spouse, pt requires assist with bath, uses walker at times for ambulation, and also the wc. enrolled at [facility] for md and meds, and had appointment on saturday. plan is for pt to return back to home at time of dc. she will assist, states has spoken to [employer] and started process for assistance with transportation, states she has not spoken to [employer] for possible social security assistance, did provide pt phone # for [employer], also called and spoke to [employer] and he will followup with [employer] to see if he can qualify under his wifes quarters for assistance.informed that pt has Renal failure, and will probably require Dialysis as per Dr Parul alexander plan is back to home. Addendum: 05/02/19 at 1749 by SRINIVAS GRANADOS CM Amended: Links added.
[2019-05-02] MEDS: HYDRALAZINE HCL 20 MG/ML VIAL IV PRN (20:02)
[2019-05-02] MEDS: ATORVASTATIN CALCIUM 20 MG TABLET PO SCH (22:38)
[2019-05-02] MEDS: SODIUM BICARBONATE 650 MG TAB PO SCH (22:38)
[2019-05-02] MEDS: METOPROLOL TARTRATE 50 MG TAB PO SCH (22:38)
[2019-05-02] MEDS ORDERED: FUROSEMIDE 10 MG/ML 4ML VIAL ONE (22:46)
[2019-05-02] MEDS: FUROSEMIDE 10 MG/ML 10ML VIAL IVP SCH (22:59)
[2019-05-03] MEDS: IPRATROPIUM/ALBUTEROL SULFATE 3 ML SOLUTION IH PRN (01:43)
[2019-05-03 03:00] VITALS: BP 186/85
[2019-05-03 05:08] LABS: BASOPHILS % (AUTO) 0.1 % (0.0-5.0); EOSINOPHILS % (AUTO) 12.1 % (0.0-8.0); HEMATOCRIT 22.9 % (42-54); LYMPHOCYTES % (AUTO) 15.5 % (21.0-51.0); MEAN CORPUSCULAR HEMOGLOBIN 28.1 pg (27.0-33.0); MEAN CORPUSCULAR VOLUME 90.5 fL (79-99); MONOCYTES % (AUTO) 6.5 % (3.0-13.0); NEUTROPHILS % (AUTO) 65.5 % (40.0-77.0); PLATELET COUNT (AUTO) 295 K/uL (130-400); RED BLOOD CELL COUNT(AUTO) 2.53 MIL/uL (4.50-6.20); RED CELL DISTRIBUTION WIDTH 16.4 % (11.0-15.5); WHITE BLOOD COUNT (AUTO) 9.4 K/uL (4.8-10.8)
[2019-05-03] MEDS: INSULIN HUMULIN R 100 UNIT/ML 3ML SQ SCH ×4 (05:13→21:00)
[2019-05-03] MEDS: HYDRALAZINE HCL 20 MG/ML VIAL IV PRN ×2 (05:14→15:04)
[2019-05-03 05:22] LABS: B-TYPE NATRIURETIC PEPTIDE 1880 pg/mL (0-100)
[2019-05-03 05:27] LABS: CREATININE 6.5 mg/dL (0.5-1.5); POTASSIUM 5.1 mmol/L (3.5-5.1)
[2019-05-03 08:00] VITALS: BP 167/71
[2019-05-03] MEDS: METOPROLOL TARTRATE 50 MG TAB PO SCH ×2 (10:31→20:06)
[2019-05-03] MEDS: SODIUM BICARBONATE 650 MG TAB PO SCH ×2 (10:31→20:07)
[2019-05-03] MEDS: FAMOTIDINE 20MG TAB 20 MG TAB PO SCH ×2 (10:31→20:07)
[2019-05-03] MEDS: CEFTRIAXONE SODIUM 1 GM IVP SCH ×2 (10:31→22:16)
[2019-05-03] MEDS: FOLIC ACID/VITAMIN B COMP W-C 1 MG CAP/TAB PO SCH (10:31)
[2019-05-03] MEDS: FUROSEMIDE 10 MG/ML 10ML VIAL IVP SCH ×2 (10:31→20:07)
[2019-05-03 12:00] VITALS: BP 166/73
[2019-05-03] MEDS: ACETAMINOPHEN 325 MG TAB PO PRN ×2 (15:06→20:08)
[2019-05-03 16:00] VITALS: BP 153/76
--- NOTE | 2019-05-03 17:20 | NUR ---
BLADDER SCANNER Obtained 95mL IN SCANNER. dONE s/t COMPLAINTS OF PELVIC PAIN.
[2019-05-03 19:00] VITALS: BP_SYST 158; BP_SYST 162; BP_DIAS 75; BP_DIAS 82
[2019-05-03] MEDS: ATORVASTATIN CALCIUM 20 MG TABLET PO SCH (20:07)
[2019-05-03] MEDS: DOXYCYCLINE 100MG+NS 250ML 250 ML IV SCH (20:52)
[2019-05-03 23:00] VITALS: BP_SYST 136; BP_SYST 162; BP_DIAS 66; BP_DIAS 82
[2019-05-04 03:00] VITALS: BP 158/88
[2019-05-04] MEDS: DOXYCYCLINE 100MG+NS 250ML 250 ML IV SCH ×2 (04:35→21:24)
[2019-05-04 06:06] LABS: BASOPHILS % (AUTO) 0.4 % (0.0-5.0); EOSINOPHILS % (AUTO) 11.5 % (0.0-8.0); HEMATOCRIT 24.9 % (42-54); LYMPHOCYTES % (AUTO) 18.1 % (21.0-51.0); MEAN CORPUSCULAR HEMOGLOBIN 28.1 pg (27.0-33.0); MEAN CORPUSCULAR HGB CONC 30.5 g/dL (32.0-36.0); MEAN CORPUSCULAR VOLUME 92.2 fL (79-99); MONOCYTES % (AUTO) 8.1 % (3.0-13.0); NEUTROPHILS % (AUTO) 61.6 % (40.0-77.0); PLATELET COUNT (AUTO) 328 K/uL (130-400); RED CELL DISTRIBUTION WIDTH 16.6 % (11.0-15.5); WHITE BLOOD COUNT (AUTO) 9.8 K/uL (4.8-10.8)
[2019-05-04 06:33] LABS: CREATININE 6.8 mg/dL (0.5-1.5); POTASSIUM 4.8 mmol/L (3.5-5.1)
[2019-05-04] MEDS: INSULIN HUMULIN R 100 UNIT/ML 3ML SQ SCH ×3 (06:34→21:00)
[2019-05-04 07:00] VITALS: BP 191/89
--- NOTE | 2019-05-04 08:28 | NUR ---
BP 190'S, BP MEDICATIONS GIVEN, DR REENA QUEZADA AWARE, STATES GIVE BP MEDS THEN RECHECK AND COVER BP ORDERED WITH PRN MED.
[2019-05-04] MEDS: FOLIC ACID/VITAMIN B COMP W-C 1 MG CAP/TAB PO SCH (08:58)
[2019-05-04] MEDS: FAMOTIDINE 20MG TAB 20 MG TAB PO SCH ×2 (08:58→21:24)
[2019-05-04] MEDS: METOPROLOL TARTRATE 50 MG TAB PO SCH ×2 (08:58→21:24)
[2019-05-04] MEDS: SODIUM BICARBONATE 650 MG TAB PO SCH ×2 (08:58→21:24)
[2019-05-04] MEDS: CEFTRIAXONE SODIUM 1 GM IVP SCH ×2 (09:00→21:24)
[2019-05-04] MEDS: FUROSEMIDE 10 MG/ML 10ML VIAL IVP SCH ×2 (09:00→21:25)
[2019-05-04 11:00] VITALS: BP 192/77
--- NOTE | 2019-05-04 12:01 | NUR ---
BP 190'S WILL MANAGE WITH HYDRALAZINE PRN DR. QUEZADA AWARE.
[2019-05-04] MEDS: HYDRALAZINE HCL 20 MG/ML VIAL IV PRN (13:02)
[2019-05-04] MEDS: HEPARIN SODIUM 5000UNIT/ML 1ML VIAL SQ SCH ×2 (13:10→23:40)
[2019-05-04] MEDS ORDERED: LISINOPRIL 20 MG TABLET PO SCH (13:45)
[2019-05-04] MEDS ORDERED: AMLODIPINE BESYLATE 5 MG TAB PO SCH (14:00)
[2019-05-04] MEDS ORDERED: HYDRALAZINE HCL 25 MG TABLET PO SCH (14:00)
--- NOTE | 2019-05-04 15:20 | NUR ---
C consult Patient assessed as ordered. No open wounds identified on lower extremities or sacral area. Patient is out of bed and to chair; waffle mattress in use. No [facility] recommendations required at this time. Report given to patient's nurse, Kennedy BROWN.
[2019-05-04 16:00] VITALS: BP 168/58
[2019-05-04 20:00] VITALS: BP 162/92
[2019-05-04] MEDS: ATORVASTATIN CALCIUM 20 MG TABLET PO SCH (21:25)
[2019-05-04 23:27] LABS: CREATININE 6.8 mg/dL (0.5-1.5); POTASSIUM 4.9 mmol/L (3.5-5.1)
[2019-05-04 23:37] VITALS: BP 170/80
[2019-05-04] MEDS: AMLODIPINE BESYLATE 5 MG TAB PO SCH (23:39)
[2019-05-05 03:49] VITALS: BP 146/67
[2019-05-05] MEDS: DOXYCYCLINE 100MG+NS 250ML 250 ML IV SCH ×2 (04:57→17:44)
[2019-05-05] MEDS: INSULIN HUMULIN R 100 UNIT/ML 3ML SQ SCH ×4 (05:33→20:30)
--- NOTE | 2019-05-05 06:14 | NUR ---
REFUSED BATH Pt refused bath today,said it's too cold.
[2019-05-05 07:00] VITALS: BP 153/71
[2019-05-05] MEDS: IPRATROPIUM/ALBUTEROL SULFATE 3 ML SOLUTION IH PRN ×2 (07:42→18:57)
[2019-05-05] MEDS: METOPROLOL TARTRATE 50 MG TAB PO SCH ×2 (08:56→20:17)
[2019-05-05] MEDS: SODIUM BICARBONATE 650 MG TAB PO SCH ×2 (08:57→20:17)
[2019-05-05] MEDS: AMLODIPINE BESYLATE 5 MG TAB PO SCH (08:57)
[2019-05-05] MEDS: FOLIC ACID/VITAMIN B COMP W-C 1 MG CAP/TAB PO SCH (08:57)
[2019-05-05] MEDS: CEFTRIAXONE SODIUM 1 GM IVP SCH ×2 (08:59→20:17)
[2019-05-05] MEDS: FUROSEMIDE 10 MG/ML 10ML VIAL IVP SCH ×2 (08:59→20:17)
[2019-05-05] MEDS ORDERED: EPOETIN ALFA 10,000 UNIT/ML VIAL SQ SCH (09:00)
[2019-05-05] MEDS: FAMOTIDINE 20MG TAB 20 MG TAB PO SCH ×2 (10:33→20:18)
[2019-05-05 11:00] VITALS: BP 128/64
[2019-05-05] MEDS: HEPARIN SODIUM 5000UNIT/ML 1ML VIAL SQ SCH ×2 (12:33→23:15)
[2019-05-05 16:00] VITALS: BP 146/67
[2019-05-05 20:00] VITALS: BP 144/71
[2019-05-05] MEDS: ATORVASTATIN CALCIUM 20 MG TABLET PO SCH (20:18)
[2019-05-05] MEDS: HYDRALAZINE HCL 25 MG TABLET PO SCH (23:14)
[2019-05-05 23:42] VITALS: BP 152/60
[2019-05-06 04:00] VITALS: BP 143/60
[2019-05-06] MEDS: DOXYCYCLINE 100MG+NS 250ML 250 ML IV SCH ×2 (04:33→15:47)
[2019-05-06 05:24] LABS: CREATININE 7.2 mg/dL (0.5-1.5); POTASSIUM 4.6 mmol/L (3.5-5.1)
[2019-05-06] MEDS: INSULIN HUMULIN R 100 UNIT/ML 3ML SQ SCH ×4 (05:34→21:00)
[2019-05-06] MEDS: IPRATROPIUM/ALBUTEROL SULFATE 3 ML SOLUTION IH PRN ×2 (06:32→18:54)
[2019-05-06] MEDS ORDERED: ZINC OXIDE OINT 56.7 GM TP PRN (07:00)
[2019-05-06 08:23] VITALS: BP 139/70
[2019-05-06] MEDS: AMLODIPINE BESYLATE 5 MG TAB PO SCH (08:35)
[2019-05-06] MEDS: FAMOTIDINE 20MG TAB 20 MG TAB PO SCH ×2 (08:35→22:34)
[2019-05-06] MEDS: METOPROLOL TARTRATE 50 MG TAB PO SCH ×2 (08:35→22:34)
[2019-05-06] MEDS: SODIUM BICARBONATE 650 MG TAB PO SCH ×2 (08:36→22:34)
[2019-05-06] MEDS: FOLIC ACID/VITAMIN B COMP W-C 1 MG CAP/TAB PO SCH (08:36)
[2019-05-06] MEDS: HYDRALAZINE HCL 25 MG TABLET PO SCH ×3 (08:37→22:34)
[2019-05-06] MEDS: CEFTRIAXONE SODIUM 1 GM IVP SCH ×2 (08:37→22:33)
[2019-05-06] MEDS: FUROSEMIDE 10 MG/ML 10ML VIAL IVP SCH (08:39)
[2019-05-06 11:22] VITALS: BP 132/62
[2019-05-06] MEDS: HEPARIN SODIUM 5000UNIT/ML 1ML VIAL SQ SCH (12:05)
--- NOTE | 2019-05-06 14:03 | NUR ---
RD NOTIFICATION RD CONSULTS DUE TO LOS X 5. DIET: RENAL NON-DIALYSIS/ FLUID RESTRICTION. PO INTAKE 100% AND HAS STEADY APPETITE PER PT. LBM: 05/03 NOTED. LABS REVIEWED. MEDS REVIEWED. PT IS NOT RECEIVING DIALYSIS AT THIS TIME. FLUID RETENTION IMPROVING, SKIN INTACT NOTED. PT STATED HE HAS NEVER SEEN A DIETITIAN IN THE PAST REGARDING HIS CONDITION. PT UNABLE TO IDENTIFY FOODS TO AVOID/ LIMIT. RD PROVIDED RENAL NON-DIALYSIS AND FLUID RESTRICTION MEDICAL NUTRITION THERAPY. AND PT ASKED QUESTIONS, RD ANSWERED AND COUPLE VERBALIZED UNDERSTANDING. EDUCATION MATERIALS WERE PROVIDED. RD RECOMMENDS TO CONTINUE CURRENT DIET AND FLUID RESTRICTION RD PROVIDED MNT RD WILL FOLLOW UP NEEDED, THANK YOU. Addendum: 05/06/19 at 1408 by ARIS ORDOÑEZ RD Amended: Links added.
--- NOTE | 2019-05-06 14:08 | NUR ---
NUTRITION EDUCATION PT IS NOT RECEIVING DIALYSIS AT THIS TIME. FLUID RETENTION IMPROVING, SKIN INTACT NOTED. PT STATED HE HAS NEVER SEEN A DIETITIAN IN THE PAST REGARDING HIS CONDITION. PT UNABLE TO IDENTIFY FOODS TO AVOID/ LIMIT. RD PROVIDED RENAL NON-DIALYSIS AND FLUID RESTRICTION MEDICAL NUTRITION THERAPY. AND PT ASKED QUESTIONS, RD ANSWERED AND COUPLE VERBALIZED UNDERSTANDING. EDUCATION MATERIALS WERE PROVIDED. Addendum: 05/06/19 at 1409 [address] ORDOÑEZ RD Amended: Links added.
[2019-05-06 16:43] VITALS: BP 135/63
[2019-05-06 20:00] VITALS: BP 143/62
[2019-05-06] MEDS: FUROSEMIDE 80 MG TABLET PO SCH (22:34)
[2019-05-06] MEDS: ATORVASTATIN CALCIUM 20 MG TABLET PO SCH (22:38)
[2019-05-07] VITALS: BP 167/65
[2019-05-07] MEDS: HEPARIN SODIUM 5000UNIT/ML 1ML VIAL SQ SCH ×3 (01:25→23:17)
[2019-05-07 04:00] VITALS: BP 150/78
[2019-05-07] MEDS: DOXYCYCLINE 100MG+NS 250ML 250 ML IV SCH ×2 (05:01→16:07)
[2019-05-07 05:48] LABS: CREATININE 7.2 mg/dL (0.5-1.5); POTASSIUM 4.4 mmol/L (3.5-5.1)
[2019-05-07] MEDS: IPRATROPIUM/ALBUTEROL SULFATE 3 ML SOLUTION IH PRN ×2 (06:38→19:20)
[2019-05-07] MEDS: INSULIN HUMULIN R 100 UNIT/ML 3ML SQ SCH ×4 (07:30→21:00)
[2019-05-07] MEDS: FOLIC ACID/VITAMIN B COMP W-C 1 MG CAP/TAB PO SCH (08:59)
[2019-05-07] MEDS: SODIUM BICARBONATE 650 MG TAB PO SCH ×2 (08:59→22:52)
[2019-05-07] MEDS: AMLODIPINE BESYLATE 5 MG TAB PO SCH (08:59)
[2019-05-07] MEDS: METOPROLOL TARTRATE 50 MG TAB PO SCH ×2 (08:59→22:52)
[2019-05-07] MEDS: FAMOTIDINE 20MG TAB 20 MG TAB PO SCH ×2 (08:59→23:01)
[2019-05-07] MEDS: FUROSEMIDE 80 MG TABLET PO SCH ×2 (09:00→22:52)
[2019-05-07] MEDS: CEFTRIAXONE SODIUM 1 GM IVP SCH ×2 (09:00→22:50)
[2019-05-07] MEDS: HYDRALAZINE HCL 25 MG TABLET PO SCH ×3 (09:00→22:52)
[2019-05-07 09:04] VITALS: BP 160/78
[2019-05-07 11:38] VITALS: BP 144/64
[2019-05-07 15:46] VITALS: BP 127/90
[2019-05-07 20:00] VITALS: BP 162/65
[2019-05-07] MEDS: ATORVASTATIN CALCIUM 20 MG TABLET PO SCH (22:52)
[2019-05-08] VITALS: BP 149/66
--- NOTE | 2019-05-08 03:45 | NUR ---
SHORTNESS OF BREATH Patient resting in bed, AAA&O X3, with spouse at bedside. Patient complaining of shortness of breath and requested to sit on side of bed. Placed patient on 2 liters of O2 via NC. No distress, pain, or chest pain. Paged geographic information system surveyor; Kevon Fay NP returned page. Informed her of patient's diagnose and medical history. Reported current vital signs; vital signs are within normal limits with O2Sat of 99% on 2 liters of O2 via NC. Upper and lower lungs are diminished upon auscultation. Informed to AUTO SUSPENSION AND STEERING MECHANIC that patient is currently on 80 mg of Lasix PO Q12H and has duaneb treatment prn. No orders were obtained but to continue to keep patient on 2 liters of O2 and to monitor O2 Sats. Will continue to monitor patient.
[2019-05-08 04:00] VITALS: BP 126/63
[2019-05-08] MEDS: DOXYCYCLINE 100MG+NS 250ML 250 ML IV SCH (05:47)
[2019-05-08] MEDS: INSULIN HUMULIN R 100 UNIT/ML 3ML SQ SCH ×4 (06:36→21:00)
[2019-05-08 07:30] VITALS: BP 155/64
[2019-05-08] MEDS: CEFTRIAXONE SODIUM 1 GM IVP SCH ×2 (08:46→22:06)
[2019-05-08] MEDS: FAMOTIDINE 20MG TAB 20 MG TAB PO SCH ×2 (08:46→22:05)
[2019-05-08] MEDS: FOLIC ACID/VITAMIN B COMP W-C 1 MG CAP/TAB PO SCH (08:47)
[2019-05-08] MEDS: METOPROLOL TARTRATE 50 MG TAB PO SCH ×2 (08:47→22:05)
[2019-05-08] MEDS: SODIUM BICARBONATE 650 MG TAB PO SCH ×2 (08:47→22:05)
[2019-05-08] MEDS: FUROSEMIDE 80 MG TABLET PO SCH ×2 (08:47→22:04)
[2019-05-08] MEDS: HYDRALAZINE HCL 25 MG TABLET PO SCH ×2 (08:47→13:40)
[2019-05-08] MEDS: AMLODIPINE BESYLATE 5 MG TAB PO SCH (08:48)
[2019-05-08 08:51] LABS: CREATININE 7.7 mg/dL (0.5-1.5); POTASSIUM 4.1 mmol/L (3.5-5.1)
[2019-05-08] MEDS ORDERED: PANTOPRAZOLE SODIUM 40 MG TABLET.DR PO SCH (10:30)
[2019-05-08 10:49] LABS: ALBUMIN 2.3 g/dL (3.5-5.0); BILIRUBIN,DIRECT 0.1 mg/dL (0.0-0.3); BILIRUBIN,TOTAL 0.3 mg/dL (0.2-1.0); TOTAL PROTEIN, SERUM 6.1 g/dL (6.0-8.3)
[2019-05-08 11:00] VITALS: BP 144/61
[2019-05-08] MEDS: HEPARIN SODIUM 5000UNIT/ML 1ML VIAL SQ SCH (11:50)
[2019-05-08 13:14] LABS: INR 1.11 (0.85-1.15); PARTIAL THROMBOPLASTIN TIME 29.5 SEC (26.3-35.5); PROTHROMBIN TIME 11.6 SEC (9.6-11.6)
--- NOTE | 2019-05-08 13:30 | NUR ---
TO RADIOLOGY PATIENT TRANSFERRED TO RADIOLOGY FOR THORACENTESIS VIA WHEELCHAIR IN STABLE CONDITION. SPOUSE SIGNED CONSENT PER PATIENT'S REQUEST. SPOUSE WILL WAIT IN ROOM.
--- NOTE | 2019-05-08 14:20 | NUR ---
POST THORACENTESIS PATIENT RETURNED FROM THORACENTESIS IN STABLE CONDITION. NO COMPLAINTS AT PRESENT. DRESSING TO RIGHT SIDE OF BACK IS DRY AND INTACT. WILL CONTINUE TO MONITOR.
[2019-05-08 16:00] VITALS: BP 133/58
[2019-05-08 16:00] LABS: APPEARANCE BODY FLUID CLEAR (CLEAR); COLOR,BODY FLUID YELLOW (LT YELLOW); SPECIMENTYPE,BODY FLUID PLEURAL; TOTAL VOLUME,BODY FLUID 1500 mL
[2019-05-08 16:01] LABS: BODY FLUID RBC 22 /cu. mm.; BODY FLUID WBC 66 /cu. mm.
[2019-05-08 16:17] LABS: BF EOSINOPHIL 6 %; BF LYMPHOCYTE 44 %; BF MONOCYTE 9 %
[2019-05-08 20:00] VITALS: BP 146/59
[2019-05-08] MEDS: DOXYCYCLINE HYCLATE 100 MG TABLET PO SCH (22:04)
[2019-05-08] MEDS: ATORVASTATIN CALCIUM 20 MG TABLET PO SCH (22:05)
[2019-05-09] VITALS: BP 160/64
[2019-05-09] MEDS: HEPARIN SODIUM 5000UNIT/ML 1ML VIAL SQ SCH ×2 (00:20→12:22)
[2019-05-09] MEDS: HYDRALAZINE HCL 25 MG TABLET PO SCH ×3 (00:23→14:10)
[2019-05-09 04:00] VITALS: BP 149/54
[2019-05-09 05:02] LABS: POTASSIUM 3.9 mmol/L (3.5-5.1)
[2019-05-09] MEDS: INSULIN HUMULIN R 100 UNIT/ML 3ML SQ SCH ×3 (06:31→16:11)
[2019-05-09] MEDS: ACETAMINOPHEN 325 MG TAB PO PRN (06:35)
[2019-05-09 07:30] VITALS: BP 132/56
[2019-05-09] MEDS: METOPROLOL TARTRATE 50 MG TAB PO SCH (09:00)
[2019-05-09] MEDS: SODIUM BICARBONATE 650 MG TAB PO SCH (09:28)
[2019-05-09] MEDS: FOLIC ACID/VITAMIN B COMP W-C 1 MG CAP/TAB PO SCH (09:28)
[2019-05-09] MEDS: DOXYCYCLINE HYCLATE 100 MG TABLET PO SCH (09:28)
[2019-05-09] MEDS: FAMOTIDINE 20MG TAB 20 MG TAB PO SCH (09:28)
[2019-05-09] MEDS: AMLODIPINE BESYLATE 5 MG TAB PO SCH (09:29)
[2019-05-09] MEDS: FUROSEMIDE 80 MG TABLET PO SCH (09:29)
[2019-05-09] MEDS: CEFTRIAXONE SODIUM 1 GM IVP SCH (09:29)
[2019-05-09 11:00] VITALS: BP 139/59
[2019-05-09] MEDS ORDERED: HYDR25 PO (13:03)
[2019-05-09] MEDS ORDERED: DOXY100T2 PO (13:03)
[2019-05-09] MEDS ORDERED: FURO80TA3 PO (13:03)
[2019-05-09] MEDS ORDERED: SODI650T PO (13:03)
--- NOTE | 2019-05-09 14:20 | NUR ---
DISCHARGE INSTRUCTIONS DISCHARGE INSTRUCTIONS GIVEN TO PATIENT AND HIS . BOTH VERBALIZED UNDERSTANDING. MEDICATIONS HAVE BEEN ELECTRONICALLY SENT TO [facility] IN [place], PATIENTS PREFERRED PHARMACY. IV HAS BEEN DISCONTINUED AND TELEPAK REMOVED.
== END 2019-05-09 15:30 | disposition home or self-care (01) | DRG 291 ==
LOC: EDH 22:27 → EDHIP 22:28 → 3DH 05-02 02:13 → 2AH 05-02 03:56 → 3DH 05-02 14:28
PROVIDERS: ADMIT Family Medicine; ATTEND Family Medicine
PROC: 0W993ZZ Drainage of Right Pleural Cavity, Percutaneous Approach (ICD-10-PCS; principal; 2019-05-08)
DX: I13.2 Hypertensive heart and chronic kidney disease with heart failure and with stage 5 chronic kidney disease, or end stage renal disease (principal); I50.33 Acute on chronic diastolic (congestive) heart failure; N18.6 End stage renal disease; J96.01 Acute respiratory failure with hypoxia; E44.0 Moderate protein-calorie malnutrition; E87.2 Acidosis; N39.0 Urinary tract infection, site not specified; E11.22 Type 2 diabetes mellitus with diabetic chronic kidney disease; E11.51 Type 2 diabetes mellitus with diabetic peripheral angiopathy without gangrene; D64.9 Anemia, unspecified; Z96.642 Presence of left artificial hip joint; N49.2 Inflammatory disorders of scrotum; K80.20 Calculus of gallbladder without cholecystitis without obstruction; R60.1 Generalized edema; Z68.25 Body mass index [BMI] 25.0-25.9, adult; Z79.4 Long term (current) use of insulin; Z87.891 Personal history of nicotine dependence; Z91.14 Patient's other noncompliance with medication regimen; Z91.19 Patient's noncompliance with other medical treatment and regimen
CPT/HCPCS: 32555; 36415; 36600; 71045; 73502; 74176; 76870; 80048; 80053; 80076; 81001; 82140; 82728; 82803; 82948; 83540; 83550; 83690; 83735; 83880; 84484; 85025; 85610; 85730; 87071; 87088; 87205; 89051; 93005; 93970; 94640; 94664; 94760; 97039; G0378; J0360; J0696; J0885; J1644; J1815; J1940; J3490

== ENCOUNTER 2019-07-11 12:27 | Inpatient (IN) | payer OTHER ==
[~2019-07-11 12:27] MED LIST changes: -AMLO5TAB4 PO; +DOXY100T2 PO; +FUROSEMIDE 10 MG/ML 2ML VIAL IVP SCH; -Folic Acid/Vitamin B Comp W-C PO; +HYDR25 PO; -LIDO1ADH71 TP; +SODI650T PO
[2019-07-11 13:00] LABS: BASOPHILS % (AUTO) 0.3 % (0.0-5.0); EOSINOPHILS % (AUTO) 3.1 % (0.0-8.0); HEMATOCRIT 25.3 % (42-54); LYMPHOCYTES % (AUTO) 8.5 % (21.0-51.0); MEAN CORPUSCULAR HEMOGLOBIN 29.1 pg (27.0-33.0); MEAN CORPUSCULAR HGB CONC 31.6 g/dL (32.0-36.0); MONOCYTES % (AUTO) 4.7 % (3.0-13.0); PLATELET COUNT (AUTO) 221 K/uL (130-400); RED BLOOD CELL COUNT(AUTO) 2.75 MIL/uL (4.50-6.20); RED CELL DISTRIBUTION WIDTH 16.5 % (11.0-15.5); WHITE BLOOD COUNT (AUTO) 9.7 K/uL (4.8-10.8)
[2019-07-11 13:05] LABS: INR 1.04 (0.85-1.15); PARTIAL THROMBOPLASTIN TIME 29.5 SEC (26.3-35.5); PROTHROMBIN TIME 10.9 SEC (9.6-11.6)
[2019-07-11 13:09] LABS: ALBUMIN 2.5 g/dL (3.5-5.0); BILIRUBIN,TOTAL 0.3 mg/dL (0.2-1.0); CREATININE 7.6 mg/dL (0.5-1.5); TOTAL PROTEIN, SERUM 6.6 g/dL (6.0-8.3)
[2019-07-11 13:11] LABS: POTASSIUM 6.2 mmol/L (3.5-5.1)
[2019-07-11] MEDS ORDERED: ASPIRIN 325 MG TABLET ONE (13:52)
[2019-07-11] MEDS ORDERED: DOPAMINE HCL 400 MG/D5%-WATER 250 ML IV ONE (14:27)
[2019-07-11] MEDS ORDERED: SODIUM BICARB 8.4% 50ML SYRINGE IVP ONE (14:27)
[2019-07-11] MEDS ORDERED: EPINEPHRINE 0.1 MG/ML 10 ML SYG IVP ONE (14:27)
[2019-07-11] MEDS ORDERED: CALCIUM CHLORIDE 100 MG/ML 10 ML SYG IVP ONE (14:27)
[2019-07-11] MEDS ORDERED: ONDANSETRON HCL 4 MG/2 ML VIAL IV PRN (17:15)
[2019-07-11] MEDS ORDERED: ACETAMINOPHEN 325 MG TAB PO PRN ×2 (17:15)
[2019-07-11] MEDS ORDERED: FUROSEMIDE 10 MG/ML 4ML VIAL ONE (17:47)
[2019-07-11 18:08] LABS: ALBUMIN 2.3 g/dL (3.5-5.0); BILIRUBIN,TOTAL 0.3 mg/dL (0.2-1.0); CREATININE 7.5 mg/dL (0.5-1.5); TOTAL PROTEIN, SERUM 6.4 g/dL (6.0-8.3)
[2019-07-11] MEDS ORDERED: FUROSEMIDE 10 MG/ML 4ML VIAL IV SCH (18:15)
[2019-07-11 18:18] LABS: POTASSIUM 6.5 mmol/L (3.5-5.1)
[2019-07-11] MEDS ORDERED: SODIUM POLYSTYRENE SULFONATE 15 GM/60 ML ML PO SCH (18:45)
[2019-07-11] MEDS ORDERED: DEXTROSE 50%-WATER 50 ML DISP.SYRIN IV SCH (18:45)
[2019-07-11] MEDS ORDERED: CALCIUM CHLORIDE 100 MG/ML 10 ML SYG IVP SCH (18:45)
[2019-07-11] MEDS ORDERED: ALBUTEROL SULFATE 0.083% 2.5 MG/3 ML INH IH SCH ×2 (18:45→20:15)
[2019-07-11] MEDS ORDERED: INSULIN HUMULIN R 100 UNIT/ML 3ML SQ SCH (18:45)
[2019-07-11] MEDS ORDERED: SODIUM POLYSTYRENE SULFONATE 15 GM/60 ML ML ONE (19:00)
[2019-07-11] MEDS ORDERED: DEXTROSE 50%-WATER 50 ML DISP.SYRIN IV ONE (19:02)
[2019-07-11] MEDS ORDERED: INSULIN HUMULIN R 100 UNIT/ML 3ML ONE (19:02)
[2019-07-12] MEDS ORDERED: FUROSEMIDE 10 MG/ML 2ML VIAL ONE ×2 (03:50→07:46)
[2019-07-12] MEDS ORDERED: DEXTROSE 50%-WATER 50 ML DISP.SYRIN IV ONE ×2 (04:08→08:33)
[2019-07-12] MEDS ORDERED: DEXTROSE 10%-WATER 1,000 ML IV ONE (04:13)
[2019-07-12] MEDS ORDERED: GLUCAGON 1MG KIT 1 MG ML IM PRN (04:45)
[2019-07-12] MEDS ORDERED: DEXTROSE 50%-WATER 50 ML DISP.SYRIN IV PRN (04:45)
[2019-07-12 04:48] LABS: ABG BASE EXCESS -11.7 mmol/L (-2.0-3.0); ABG HCO3 18.7 mmol/L (21.0-28.0); ABG OXYGEN SATURATION 96.8 % (95.0-99.0); ABG PCO2 62 mmHg (35-48)
[2019-07-12 06:08] LABS: BASOPHILS % (AUTO) 0.2 % (0.0-5.0); EOSINOPHILS % (AUTO) 0.1 % (0.0-8.0); HEMATOCRIT 22.5 % (42-54); LYMPHOCYTES % (AUTO) 2.9 % (21.0-51.0); MEAN CORPUSCULAR HEMOGLOBIN 29.8 pg (27.0-33.0); MEAN CORPUSCULAR HGB CONC 31.6 g/dL (32.0-36.0); MEAN CORPUSCULAR VOLUME 94.5 fL (79-99); MONOCYTES % (AUTO) 5.3 % (3.0-13.0); NEUTROPHILS % (AUTO) 90.8 % (40.0-77.0); PLATELET COUNT (AUTO) 165 K/uL (130-400); RED BLOOD CELL COUNT(AUTO) 2.38 MIL/uL (4.50-6.20); RED CELL DISTRIBUTION WIDTH 17.2 % (11.0-15.5); WHITE BLOOD COUNT (AUTO) 12.2 K/uL (4.8-10.8)
[2019-07-12 06:32] LABS: B-TYPE NATRIURETIC PEPTIDE 1210 pg/mL (0-100)
[2019-07-12 07:23] LABS: ALBUMIN 2.2 g/dL (3.5-5.0); BILIRUBIN,TOTAL 0.2 mg/dL (0.2-1.0); CREATININE 7.7 mg/dL (0.5-1.5); POTASSIUM 5.7 mmol/L (3.5-5.1); TOTAL PROTEIN, SERUM 6.2 g/dL (6.0-8.3)
[2019-07-12] MEDS ORDERED: FUROSEMIDE 10 MG/ML 10ML VIAL IVP SCH (07:30)
[2019-07-12] MEDS ORDERED: FUROSEMIDE 10 MG/ML 4ML VIAL ONE (07:46)
[2019-07-12] MEDS ORDERED: SODIUM BICARB 50MEQ 50ML VIAL ONE ×2 (09:11→13:37)
[2019-07-12 09:26] LABS: ABG BASE EXCESS -12.3 mmol/L (-2.0-3.0); ABG HCO3 20.1 mmol/L (21.0-28.0); ABG OXYGEN SATURATION 46.5 % (95.0-99.0); ABG PCO2 79 mmHg (35-48)
[2019-07-12] MEDS ORDERED: PROPOFOL 1000 MG/100 ML 100 ML IV ONE (09:38)
[2019-07-12 09:40] LABS: ABG HCO3 24.6 mmol/L (21.0-28.0); ABG OXYGEN SATURATION 97.4 % (95.0-99.0); ABG PCO2 73 mmHg (35-48)
[2019-07-12 10:14] LABS: POTASSIUM 5.7 mmol/L (3.5-5.1)
[2019-07-12 10:20] LABS: CREATINE KINASE, TOTAL 137 U/L (21-232); TROPONIN I < 0.04 ng/mL (0.00-0.06)
[2019-07-12 10:21] LABS: MYOGLOBIN 247 ng/mL (10-92)
[2019-07-12 10:22] LABS: BASOPHILS % (AUTO) 0.2 % (0.0-5.0); EOSINOPHILS % (AUTO) 0.4 % (0.0-8.0); HEMATOCRIT 24.5 % (42-54); LYMPHOCYTES % (AUTO) 23.3 % (21.0-51.0); MEAN CORPUSCULAR HEMOGLOBIN 29.9 pg (27.0-33.0); MEAN CORPUSCULAR VOLUME 96.5 fL (79-99); MONOCYTES % (AUTO) 4.6 % (3.0-13.0); NEUTROPHILS % (AUTO) 67.1 % (40.0-77.0); NUCLEATED RED BLOOD CELLS 1.5 % (0.0-0.19); PLATELET COUNT (AUTO) 171 K/uL (130-400); RED BLOOD CELL COUNT(AUTO) 2.54 MIL/uL (4.50-6.20); WHITE BLOOD COUNT (AUTO) 5.5 K/uL (4.8-10.8)
[2019-07-12] MEDS ORDERED: NOREPINEPHRINE BITARTRATE 1 MG/1 ML ML IV ONE (10:25)
[2019-07-12] MEDS ORDERED: SODIUM CHLORIDE 0.9% 250 ML IV ONE (10:26)
[2019-07-12] MEDS ORDERED: EPINEPHRINE 10 MG in SODIUM CHLORIDE 0.9% 250 ML IV SCH (10:30)
[2019-07-12 10:40] LABS: INR 1.16 (0.85-1.15); PARTIAL THROMBOPLASTIN TIME 27.8 SEC (26.3-35.5); PROTHROMBIN TIME 12.1 SEC (9.6-11.6)
[2019-07-12 10:50] LABS: ABG HCO3 19.1 mmol/L (21.0-28.0); ABG PCO2 60 mmHg (35-48)
[2019-07-12] MEDS ORDERED: FENTANYL CITRATE PF 0.05 MG/ML 1,000 MCG in SODIUM CHLORIDE 0.9% 100 ML IVPB SCH (11:45)
[2019-07-12] MEDS ORDERED: HYDROCORTISONE SOD SUCCINATE 100 MG/2 ML VIAL IM SCH (14:00)
[2019-07-12] MEDS ORDERED: ZOSYN 3.375GM+NS 50ML 50 ML IV SCH (14:00)
== END 2019-07-12 14:28 | disposition expired | DRG 291 ==
LOC: EDH 12:27 → EDHIP 12:28
PROVIDERS: ADMIT Family Medicine; ATTEND Family Medicine
PROC: 0BH17EZ Insertion of Endotracheal Airway into Trachea, Via Natural or Artificial Opening (ICD-10-PCS; principal; 2019-07-12)
PROC: 5A1935Z Respiratory Ventilation, Less than 24 Consecutive Hours (ICD-10-PCS; 2019-07-12)
DX: I13.2 Hypertensive heart and chronic kidney disease with heart failure and with stage 5 chronic kidney disease, or end stage renal disease (principal); J96.01 Acute respiratory failure with hypoxia; N18.6 End stage renal disease; J18.9 Pneumonia, unspecified organism; E87.4 Mixed disorder of acid-base balance; E11.22 Type 2 diabetes mellitus with diabetic chronic kidney disease; I50.9 Heart failure, unspecified; E87.5 Hyperkalemia; R00.1 Bradycardia, unspecified; D64.9 Anemia, unspecified; I46.9 Cardiac arrest, cause unspecified; Z66 Do not resuscitate; Z81.1 Family history of alcohol abuse and dependence; Z83.3 Family history of diabetes mellitus; Z82.49 Family history of ischemic heart disease and other diseases of the circulatory system; Z91.14 Patient's other noncompliance with medication regimen; Z87.891 Personal history of nicotine dependence; Z79.899 Other long term (current) drug therapy; Z91.15 Patient's noncompliance with renal dialysis; E78.5 Hyperlipidemia, unspecified
CPT/HCPCS: 31500; 36415; 36600; 71045; 80048; 80053; 82435; 82550; 82803; 82947; 82948; 83605; 83874; 83880; 84132; 84145; 84295; 84484; 85018; 85025; 85610; 85730; 92950; 93005; 94002; 94640; 94660; 99291; G0378; J0171; J1265; J1815; J1940; J2704; J3490; J7030; J7070